=== PATIENT | male | born 1985 | race Caucasian/White ===

== ENCOUNTER 2020-08-06 22:24 | Emergency (ER) | payer BC ==
[2020-08-06 22:32] VITALS: BP 134/104; PULSE 71; TEMP 97.6; BMI 25.0
[2020-08-06] MEDS ORDERED: predniSONE 20 MG TABLET (UD) PO ONE (22:42)
[2020-08-06] MEDS ORDERED: predniSONE 20 MG TABLET (UD) ONE (22:47)
[2020-08-06] MEDS ORDERED: IBUPROFEN 600 MG TABLET (FP) PO ONE ×2 (23:03→23:05)
[2020-08-08 16:08] LABS: EPSTEIN BARR ANTIBODY IgM <36.0 U/mL (0.0-35.9)
== END 2020-08-06 23:06 | disposition home or self-care (01) ==
LOC: FER 22:24
DX: G51.0 Bell's palsy (principal); H92.02 Otalgia, left ear
CPT/HCPCS: 36415; 86618; 86665; 99284-25